=== PATIENT | male | born 1955 | race Caucasian/White ===

== ENCOUNTER 2019-04-07 17:48 | Emergency (ER) | payer MEDICARE, BC ==
[2019-04-07 18:08] VITALS: BP 96/59
--- NOTE | 2019-04-07 18:52 | EDM.PDOC ---
ED HPI GENERAL MEDICAL PROBLEM - General Chief Complaint: General Stated Complaint: NOT FEELING WELL Time Seen by Provider: 04/07/19 18:25 Source of Information: Reports: Patient, Family History Limitations: Reports: No Limitations - History of Present Illness INITIAL COMMENTS - FREE TEXT/NARRATIVE: 64-year-old male with several weeks of lightheaded feelings and dizziness when standing and with activity. Today he had a very small spot of blood in his stool so came in to be checked. He has no pain, no shortness of breath, no headache, no nausea or vomiting but he does "gag easy" when eating. He does have chronic diarrhea. Also chronic lower extremity edema which is "much better , and he has lost 20-30 pounds in the last month or two". He had a cardiology follow-up last month in which an echocardiogram was normal. His pacemaker is working well. Onset: Unknown/Unsure Duration: Week(s): (A few weeks of symptoms) Worsens with: Reports: Other (Standing and activity causes dizziness) Associated Symptoms: Denies: Confusion, Chest Pain, Cough, Diaphoresis, Fever/ Chills, Headaches, Shortness of Breath Lower Back Pain Score (Numeric/FACES): 8 - Related Data Allergies Allergy/AdvReac Type Severity Reaction Status Date / Time lisinopril Allergy Cough Verified 04/07/19 18:11 Home Meds: Home Meds Losartan/Hydrochlorothiazide [Losartan-HCTZ 100-25 MG] 1 each PO DAILY 11/16/13 [History] Citalopram Hydrobromide [Citalopram HBr] 20 mg PO DAILY 06/28/16 [History] Furosemide 40 mg PO DAILY 06/28/16 [History] levETIRAcetam [Keppra] 500 mg PO BID 06/28/16 [History] Metoprolol Tartrate 100 mg PO BID 02/08/18 [History] Past Medical History HEENT History: Reports: Impaired Vision Cardiovascular History: Reports: High Cholesterol, Hypertension, Pacemaker, Other (See Below) Other Cardiovascular History: sick sinus syndrome Musculoskeletal History: Reports: Back Pain, Chronic, Other (See Below) Other Musculoskeletal History: right knee pain Neurological History: Reports: Seizure Psychiatric History: Reports: Anxiety Endocrine/Metabolic History: Reports: Obesity/BMI 30+ - Past Surgical History Musculoskeletal Surgical History: Reports: Arthroscopic Knee Social & Family History - Tobacco Use Smoking Status *Q: Former Smoker Used Tobacco, but Quit: Yes Month/Year Tobacco Last Used: 20 years - Caffeine Use Caffeine Use: Reports: Coffee - Alcohol Use Days Per Week of Alcohol Use: 7 Number of Drinks Per Day: 1 Total Drinks Per Week: 7 - Recreational Drug Use Recreational Drug Use: No ED ROS GENERAL - Review of Systems Review Of Systems: See Below Constitutional: Denies: Fever, Chills HEENT: Reports: No Symptoms Respiratory: Denies: Shortness of Breath, Cough Cardiovascular: Reports: Palpitations (Occasional brief rapid palpitations which is controlled with his pacemaker). Denies: Chest Pain GI/Abdominal: Reports: Other ("gags easy" when eating). Denies: Abdominal Pain : Reports: No Symptoms Skin: Reports: No Symptoms Neurological: Reports: Dizziness Psychiatric: Reports: No Symptoms ED EXAM, GENERAL - Physical Exam Exam: See Below Exam Limited By: No Limitations General Appearance: Alert, No Apparent Distress, Other (Blood pressure on arrival was only 96/59, pulse 91. Orthostatics when standing his blood pressure dropped to 76/33) Eye Exam: Bilateral Eye: Normal Inspection Head: Atraumatic Respiratory/Chest: No Respiratory Distress, Lungs Clear Cardiovascular: Regular Rate, Rhythm GI/Abdominal: Soft, Non-Tender Extremities: Pedal Edema (Trace symmetric lower extremity edema below the knees) Neurological: Alert, Oriented, No Motor/Sensory Deficits Psychiatric: Normal Affect, Normal Mood Skin Exam: Dry Course - Vital Signs Last Recorded V/S: Last Vital Signs Temp 97 F 04/07/19 18:07 Pulse 91 04/07/19 18:07 Resp 20 04/07/19 18:07 BP 96/59 L 04/07/19 18:07 Pulse Ox 95 04/07/19 18:07 Orthostatic Blood Pressure [ 79/33 Standing] Orthostatic Blood Pressure [ 89/50 Sitting] Orthostatic Blood Pressure [ 90/51 Supine] - Orders/Labs/Meds Labs: Laboratory Tests 04/07/19 04/07/19 04/07/19 Range/Units 19:02 19:04 19:04 WBC 6.4 (4.5-11.0) K/uL RBC 3.44 L (4.30-5.90) M/uL Hgb 12.2 D (12.0-15.0) g/dL Hct 35.3 L (40.0-54.0) % MCV 103 H (80-98) fL MCH 36 H (27-31) pg MCHC 35 (32-36) % Plt Count 279 (150-400) K/uL Neut % (Auto) 52 (36-66) % Lymph % (Auto) 25 (24-44) % Bates % (Auto) 22 H (2-6) % Eos % (Auto) 1 L (2-4) % Baso % (Auto) 1 (0-1) % Sodium 133 L (140-148) mmol/L Potassium 2.7 L* (3.6-5.2) mmol/L Chloride 90 L (100-108) mmol/L Carbon Dioxide 27 (21-32) mmol/L Anion Gap 18.7 H (5.0-14.0) mmol/L BUN 36 H D (7-18) mg/dL Creatinine 2.0 H D (0.8-1.3) mg/dL Est Cr Clr Drug Dosing 36.33 mL/min Estimated GFR (MDRD) 34 L (>60) Glucose 112 H (74-106) mg/dL Calcium 8.8 (8.5-10.1) mg/dL Total Bilirubin 1.2 H (0.2-1.0) mg/dL AST 68 H D (15-37) U/L ALT 25 D (12-78) U/L Alkaline Phosphatase 110 (46-116) U/L Total Protein 7.1 (6.4-8.2) g/dL Albumin 3.5 (3.4-5.0) g/dL Globulin 3.6 H (2.3-3.5) g/dL Albumin/Globulin Ratio 1.0 L (1.2-2.2) Urine Color Yellow Urine Appearance Clear Urine pH 5.0 (4.5-8.0) Ur Specific Lacey 1.015 (1.008-1.030) Urine Protein Negative (NEGATIVE) mg/dL Urine Glucose (UA) Normal (NEGATIVE) mg/dL Urine Ketones Negative (NEGATIVE) mg/dL Urine Occult Blood Trace (NEGATIVE) Urine Nitrite Negative (NEGAITVE) Urine Bilirubin Negative (NEGATIVE) Urine Urobilinogen Normal (NORMAL) mg/dL Ur Leukocyte Esterase Negative (NEGATIVE) Urine RBC 0-5 (0-5) Urine WBC 0-5 (0-5) Ur Epithelial Cells Few Amorphous Sediment Not seen Urine Bacteria Many Urine Mucus Few Urine Other Meds: Medications Discontinued Medications Generic Name Dose Route Start Last Admin Trade Name Laya PRN Reason Stop Dose Admin Sodium Chloride 500 mls @ 1,000 mls/hr 04/07/19 19:00 04/07/19 19:03 Normal Saline IV 1,000 mls/hr ASDIRECTED DUYEN Administration Potassium Chloride 40 meq 04/07/19 19:39 04/07/19 19:48 Klor-Con M20 PO 04/07/19 19:40 40 meq ONETIME ONE Administration - Re-Assessments/Exams Free Text/Narrative Re-Assessment/Exam: 04/07/19 19:09 This patient presents as likely volume contracted. He was given 500 mL of normal saline bolus, CBC CMP and UA were obtained. 04/07/19 19:40 Hemoglobin returned 12.2, white count is normal. Potassium only 2.7, creatinine 2.0 and GFR 37. He was given another 500 mL bolus of fluid for a total of 1 L, and 40 mEq of oral potassium. Inpatient hospitalization for hydration and medication adjustments were recommended but the patient wanted to treat this at home which is reasonable considering he has an appointment in [address] Valladares , his primary provider was contacted for discussion. 04/07/19 19:[address] Valladares, his Lasix and losartan/hydrochlorothiazide will both be decreased by 50% daily. He is also given a prescription for potassium chloride to take 20 mEq daily. BNP will be obtained Monday prior to his visit, and he will return sooner if he feels she is worsening or develops other concerns. Departure - Departure Time of Disposition: 20:05 Disposition: Home, Self-Care 01 Clinical Impression: Orthostatic hypotension, Volume contraction from diuretics - Discharge Information Instructions: Orthostatic Hypotension Referrals: Brice Valladares MD [Primary Care Provider] - Forms: ED Department Discharge Care Plan Goals: Take one half of your normal dose of Lasix and losartan/hydrocholothiazide for the next 2 mornings, take potassium once daily as directed. Activity as tolerated, and recheck with Dr. Valladares on Monday as scheduled. Return sooner if you feel more symptomatic or develop other concerns.
[2019-04-07] MEDS ORDERED: Sodium Chloride 0.9% 500 ML IV SCH (19:00)
[2019-04-07] MEDS ORDERED: Potassium Chloride 20 MEQ Tab.ER PO ONE (19:39)
== END 2019-04-07 20:06 | disposition home or self-care (01) ==
LOC: JP.ED 17:48
DX: I95.1 Orthostatic hypotension (principal); I10 Essential (primary) hypertension; E78.00 Pure hypercholesterolemia, unspecified; F41.9 Anxiety disorder, unspecified; Z87.891 Personal history of nicotine dependence; Z79.899 Other long term (current) drug therapy; Z88.8 Allergy status to other drugs, medicaments and biological substances
CPT/HCPCS: 36415; 80053; 81001; 85025; 99284; A9270; J7030

== ENCOUNTER 2019-10-02 11:00 | Emergency (ER) | payer MEDICARE, BC ==
[2019-10-02 11:20] VITALS: BP 158/104; PULSE 85
--- NOTE | 2019-10-02 11:56 | EDM.PDOC ---
ED HPI GENERAL MEDICAL PROBLEM - General Chief Complaint: Respiratory Problem Stated Complaint: LIGHT HEADED DIZZY Time Seen by Provider: 10/02/19 11:30 Source of Information: Reports: Patient, Family History Limitations: Reports: No Limitations - History of Present Illness INITIAL COMMENTS - FREE TEXT/NARRATIVE: 64-year-old male arrives this morning after several hours of weakness, diaphoresis, pallor, and not feeling well. He has been having ongoing symptoms of early satiety and nausea with eating, intermittent dark stools, intermittent tremor, weakness, all have been evaluated and being worked up by his primary care. He is scheduled for an EGD next week. He has a pacemaker but has not had bypass or stents placed in the past. He thinks he has lost 25 pounds since this summer. An ASHLEY for back pain was done last week, he has not had much relief. Lower Back Pain Score (Numeric/FACES): 5 - Related Data Allergies Allergy/AdvReac Type Severity Reaction Status Date / Time lisinopril AdvReac Cough Verified 10/02/19 11:13 Home Meds: Home Meds Citalopram Hydrobromide [Citalopram HBr] 20 mg PO DAILY 06/28/16 [History] Furosemide 40 mg PO DAILY 06/28/16 [History] levETIRAcetam [Keppra] 500 mg PO BID 06/28/16 [History] Metoprolol Tartrate 100 mg PO BID 02/08/18 [History] Hydrochlorothiazide [Microzide] 12.5 mg PO DAILY 09/25/19 [History] Past Medical History HEENT History: Reports: Impaired Vision Cardiovascular History: Reports: High Cholesterol, Hypertension, Pacemaker, Other (See Below) Other Cardiovascular History: sick sinus syndrome Respiratory History: Reports: Other (See Below) Other Respiratory History: states does not sleep well Gastrointestinal History: Reports: None Musculoskeletal History: Reports: Back Pain, Chronic, Other (See Below) Other Musculoskeletal History: right knee pain Neurological History: Reports: Seizure Psychiatric History: Reports: Anxiety Endocrine/Metabolic History: Reports: Obesity/BMI 30+ Dermatologic History: Reports: Other (See Below) Other Dermatologic History: scabs patient picks at skin - Past Surgical History Head Surgeries/Procedures: Reports: None HEENT Surgical History: Reports: Tonsillectomy Cardiovascular Surgical History: Reports: None Respiratory Surgical History: Reports: None GI Surgical History: Reports: Colonoscopy, EGD Endocrine Surgical History: Reports: None Neurological Surgical History: Reports: None Musculoskeletal Surgical History: Reports: Arthroscopic Knee Dermatological Surgical History: Reports: None Social & Family History - Tobacco Use Smoking Status *Q: Former Smoker Used Tobacco, but Quit: Yes Month/Year Tobacco Last Used: 1989 Second Hand Smoke Exposure: No - Caffeine Use Caffeine Use: Reports: Coffee, Soda - Alcohol Use Days Per Week of Alcohol Use: 7 Number of Drinks Per Day: 2 Total Drinks Per Week: 14 - Recreational Drug Use Recreational Drug Use: No ED ROS GENERAL - Review of Systems Review Of Systems: See Below Constitutional: Reports: Malaise, Decreased Appetite, Weight Loss. Denies: Fever, Chills HEENT: Reports: No Symptoms Respiratory: Reports: Shortness of Breath (Was feeling short of breath this morning, that has improved) Cardiovascular: Denies: Chest Pain, Palpitations GI/Abdominal: Reports: Decreased Appetite, Nausea. Denies: Abdominal Pain, Vomiting : Reports: No Symptoms Skin: Denies: Jaundice Neurological: Reports: Other (Weakness, difficulty walking, near syncopal episodes). Denies: Headache ED EXAM, GENERAL - Physical Exam Exam: See Below Exam Limited By: No Limitations General Appearance: Alert, No Apparent Distress Eye Exam: Bilateral Eye: Normal Inspection Head: Atraumatic Neck: Supple Respiratory/Chest: No Respiratory Distress, Lungs Clear Cardiovascular: Regular Rate, Rhythm GI/Abdominal: Soft, Other (Fairly obese, some mild discomfort to palpation across the upper abdomen but no focal pain or guarding) Extremities: Other (1+ symmetric pitting edema) Neurological: Alert, Oriented, No Motor/Sensory Deficits Skin Exam: Warm, Diaphoretic (Still some diaphoresis from his episode) Course - Vital Signs Last Recorded V/S: Last Vital Signs Temp 95.6 F 10/02/19 11:21 Pulse 85 10/02/19 11:21 Resp 19 10/02/19 11:21 BP 158/104 H 10/02/19 11:21 Pulse Ox 99 10/02/19 11:21 - Orders/Labs/Meds Labs: Laboratory Tests 10/02/19 10/02/19 Range/Units 11:53 11:53 WBC 6.8 (4.5-11.0) K/uL RBC 3.39 L (4.30-5.90) M/uL Hgb 10.6 L (12.0-15.0) g/dL Hct 32.7 L (40.0-54.0) % MCV 97 (80-98) fL MCH 31 (27-31) pg MCHC 32 (32-36) % Plt Count 188 (150-400) K/uL Neut % (Auto) 82 H (36-66) % Lymph % (Auto) 6 L (24-44) % Day % (Auto) 12 H (2-6) % Eos % (Auto) 0 L (2-4) % Baso % (Auto) 0 (0-1) % Sodium 132 L (140-148) mmol/L Potassium 4.2 (3.6-5.2) mmol/L Chloride 90 L (100-108) mmol/L Carbon Dioxide 23 (21-32) mmol/L Anion Gap 23.2 H (5.0-14.0) mmol/L BUN 10 D (7-18) mg/dL Creatinine 0.9 D (0.8-1.3) mg/dL Est Cr Clr Drug Dosing 80.74 mL/min Estimated GFR (MDRD) > 60 (>60) Glucose 119 H (74-106) mg/dL Calcium 9.8 (8.5-10.1) mg/dL Total Bilirubin 2.4 H D (0.2-1.0) mg/dL AST 122 H D (15-37) U/L ALT 35 (12-78) U/L Alkaline Phosphatase 158 H (46-116) U/L Troponin I < 0.017 (0.000-0.056) ng/mL Total Protein 6.8 (6.4-8.2) g/dL Albumin 3.5 (3.4-5.0) g/dL Globulin 3.3 (2.3-3.5) g/dL Albumin/Globulin Ratio 1.1 L (1.2-2.2) TSH, Ultra Sensitive 3.954 H (0.358-3.740) uIU/mL Meds: Medications Discontinued Medications Generic Name Dose Route Start Last Admin Trade Name Freq PRN Reason Stop Dose Admin Sodium Chloride 89 mls @ 3.5 mls/sec 10/02/19 13:15 10/02/19 13:40 Normal Saline IV 3.5 mls/sec ASDIRECTED DUYEN Administration Iopamidol 150 ml 10/02/19 13:02 10/02/19 13:40 Isovue-300 (61%) IV 10/03/19 13:03 150 ml . DIRECTED PRN Administration RADIOLOGY EXAM Sodium Chloride 10 ml 10/02/19 13:15 10/02/19 13:40 Saline Flush FLUSH 10 ml ONETIME DUYEN Administration - Re-Assessments/Exams Free Text/Narrative Re-Assessment/Exam: 10/02/19 12:52 Patient was placed on cardiac monitoring and showed normal sinus rhythm, it does not appear that his pacemaker is firing at this time. Blood pressure temperature and O2 saturations are all normal. CBC, CMP and TSH were obtained. 10/02/19 12:58 Hemoglobin is 10.6 which is down from 12.2 earlier this year. Alk phos, AST, bilirubin are all rising progressively. TSH is normal. An abdomen pelvis CT with IV contrast was obtained. 10/02/19 14:46 IMPRESSION: Mild stranding and edema adjacent to the proximal duodenum with mild wall prominence, as well as asymmetrical wall thickening at the gastric antrum. Correlate for PUD or nonspecific duodenitis and recommend follow-up endoscopic evaluation. Hepatomegaly and hepatic steatosis. An acute or recent compression fracture of the L2 vertebral body. A fat containing left inguinal hernia. Patchy ground-glass pulmonary opacities at the lung bases could represent nonspecific pneumonitis and/or scarring. Correlate clinically. Old granulomatous disease. Above findings were discussed with the patient. He was encouraged to keep his scheduled EGD, and will start at least 20 mg of omeprazole daily. Return if he develops any pain, fever or persistent nausea or vomiting, Departure - Departure Time of Disposition: 14:53 Disposition: Home, Self-Care 01 Clinical Impression: Vasovagal episode, Peptic ulcer disease - Discharge Information Instructions: Near-Syncope, [id number] Referrals: Brice Valladares MD [Primary Care Provider] - Forms: ED Department Discharge Care Plan Goals: Increase activity as tolerated, try omeprazole 20 mg daily and keep your appointment with your endoscopy as scheduled. Return anytime if worsening such as fever, pain, or persistent nausea and vomiting.
[2019-10-02] MEDS: Iopamidol 612 MG/ML 150 ML Bottle IV PRN (13:40)
[2019-10-02] MEDS: Sodium Chloride 0.9% 10 ML Syringe FLUSH SCH (13:40)
--- NOTE | 2019-10-02 14:41 | CRLCT ---
INDICATION: Rising LFTs. Early satiety TECHNIQUE: CT abdomen and pelvis acquired with IV contrast. 150 mL of Isovue-300 administered. COMPARISON: None available FINDINGS: Lower chest: Several patchy foci of ground-glass opacity in the lower lobes suggestive of scarring and/or nonspecific pneumonitis. A right middle lobe calcified granuloma with small adjacent clustered nodules, statistically postinflammatory. A cardiac pacer lead. Liver: Hepatomegaly measuring 23.9 cm craniocaudally. Hepatic steatosis. Spleen: Multiple calcified splenic granulomas. A sub centimeter inferior splenic low-density lesion on image 52, too small to characterize. Pancreas: Few punctate pancreatic calcifications compatible with mild chronic calcific pancreatitis. Gallbladder and bile ducts: Possible gallbladder sludge Adrenal glands: Unremarkable. Kidneys: Unremarkable. GI tract: Focal asymmetrical wall thickening in the inferomedial aspect of the gastric antrum on image 58. Mild stranding adjacent to the proximal duodenum with mild asymmetrical wall prominence. An anterior proximal duodenal diverticulum seen on image 66. No mechanical bowel obstruction. A normal appendix. A 1.5 cm ovoid fat attenuation focus within the cecum which could represent an ileocecal lipoma. No significant pericolonic changes. At least 1 sigmoid diverticulum seen. Intramural fat attenuation in right lower abdominal small bowel segments and the right colon can be seen as sequela of chronic inflammation. Vascular structures: Atherosclerotic changes. Lymph nodes: An irregular ovoid calcification in the left abdominal mesentery on image 96 which could represent a calcified lymph node. Otherwise no abnormally enlarged lymph nodes. Miscellaneous: No significant free fluid or free air. A fat containing left inguinal hernia. Pelvic Organs: Slight stranding along the left anterior bladder wall may be related to slight inflammation or mild vascular congestion in the regional fat, related to the left inguinal hernia. Unremarkable prostate. Bones: Compression deformities of the L1 and L2 vertebral bodies, with lucencies underlying the L2 inferior endplate, suggestive of a recent injury, and a tiny retropulsed fragment. Mild central compression deformity along the L3 superior endplate. IMPRESSION: Mild stranding and edema adjacent to the proximal duodenum with mild wall prominence, as well as asymmetrical wall thickening at the gastric antrum. Correlate for PUD or nonspecific duodenitis and recommend follow-up endoscopic evaluation. Hepatomegaly and hepatic steatosis. An acute or recent compression fracture of the L2 vertebral body. A fat containing left inguinal hernia. Patchy ground-glass pulmonary opacities at the lung bases could represent nonspecific pneumonitis and/or scarring. Correlate clinically. Old granulomatous disease. Dictated by Ede Mesa MD @ 10/02/2019 2:38:49 PM Please note that all CT scans at this facility use dose modulation, iterative reconstruction, and/or weight-based dosing when appropriate to reduce radiation dose to as low as reasonably achievable. Dictated by: Ede Mesa MD @ 10/02/2019 14:38:59 (Electronically Signed)
== END 2019-10-02 14:53 | disposition home or self-care (01) ==
LOC: JP.ED 11:00
DX: R55 Syncope and collapse (principal); K27.9 Peptic ulcer, site unspecified, unspecified as acute or chronic, without hemorrhage or perforation; I10 Essential (primary) hypertension; E66.9 Obesity, unspecified; Z79.899 Other long term (current) drug therapy; Z88.8 Allergy status to other drugs, medicaments and biological substances; Z87.891 Personal history of nicotine dependence
CPT/HCPCS: 36415; 74177; 80053; 84443; 84484; 85025; 99285; J7030

== ENCOUNTER 2019-10-16 07:05 | Day surgery (SDC) | payer MEDICARE, BC ==
[2019-10-16] MEDS ORDERED: Lactated Ringers 1,000 ML IV SCH (07:30)
[2019-10-16] MEDS ORDERED: Midazolam 1 MG/ML 2 ML SDV ONE (08:01)
[2019-10-16] MEDS ORDERED: Propofol 200 MG/20 ML SDV ONE ×2 (08:01→09:10)
[2019-10-16] MEDS ORDERED: fentaNYL 100 MCG/2 ML SDV ONE (08:01)
[2019-10-16 10:14] VITALS: BP 148/64; PULSE 100
--- NOTE | 2019-10-16 10:34 | OR ---
DATE OF PROCEDURE: 10/16/2019 SURGEON: Wilman Bocanegra MD PREOPERATIVE DIAGNOSIS: Dysphagia. POSTOPERATIVE DIAGNOSES: Dysphagia, hiatal hernia, pre-pyloric ulcers, gastroesophageal reflux disease. PROCEDURE PERFORMED: Esophagogastroduodenoscopy with antral biopsies for CLOtest and for pathology to look for Helicobacter pylori, biopsy of gastroesophageal junction. ANESTHESIA: IV anesthesia with monitored anesthesia care. INDICATION: This 64-year-old white male is referred for upper endoscopy because of intermittent dysphagia. He is scheduled to have a swallowing study next week. I counseled him for upper endoscopy with possible biopsy including risks and alternatives, and he gave his informed consent to proceed. DESCRIPTION OF PROCEDURE: The patient was placed in the left lateral decubitus position. IV anesthesia was administered by the Anesthesia Service. Time-out was held. A flexible video Olympus upper endoscope was passed through his mouth, down the esophagus, and into his stomach. The scope was easily passed through the pylorus into the duodenum, reaching its third portion. The scope was then slowly withdrawn examining the mucosa throughout. The duodenal mucosa appeared unremarkable. The scope was brought back through the pylorus into the duodenum. Here, we saw a quite prominent ulcer and a few other small ones. Antral biopsies were obtained for CLOtest and for pathology to look for Helicobacter pylori. The scope was retroflexed. The proximal stomach appeared unremarkable except for a hiatal hernia which was visualized. The scope was straightened and brought up through the hiatal hernia to the GE junction. There was evidence of some chronic inflammation here. We obtained multiple, totalling at least 6 biopsies of the gastroesophageal junction. The scope was then brought proximal through the remainder of the esophagus, which otherwise appeared unremarkable and was removed. There were no esophageal obstructing lesions. He tolerated the procedure well. Wilman Bocanegra MD /[id number]
== END 2019-10-16 10:20 | disposition home or self-care (01) ==
LOC: JP.SDS 07:05
PROVIDERS: ATTEND Surgery
DX: K21.0 Gastro-esophageal reflux disease with esophagitis (principal); K44.9 Diaphragmatic hernia without obstruction or gangrene; K25.9 Gastric ulcer, unspecified as acute or chronic, without hemorrhage or perforation; I10 Essential (primary) hypertension; Z88.8 Allergy status to other drugs, medicaments and biological substances
CPT/HCPCS: 43239; 87081; J2250; J2704; J3010

== ENCOUNTER 2021-01-06 15:23 | Emergency (ER) | payer MEDICARE, BC ==
[2021-01-06 15:39] VITALS: BP 113/58; PULSE 81
--- NOTE | 2021-01-06 15:42 | EDM.PDOC ---
ED HPI GENERAL MEDICAL PROBLEM - General Chief Complaint: General Stated Complaint: FELL Time Seen by Provider: 01/06/21 15:39 Source of Information: Reports: Patient History Limitations: Reports: No Limitations - History of Present Illness INITIAL COMMENTS - FREE TEXT/NARRATIVE: pt was left by his sitting in his recliner and when she got home he was sitting in front of the recliner unable to get up. He did not remember any of the events of the day. Onset: Sudden Duration: Hour(s): Location: Reports: Head, Generalized, Other ( weakness in both legs. ) Associated Symptoms: Reports: Weakness, Other ( pt can not remember the events of the day. ) - Related Data Allergies Allergy/AdvReac Type Severity Reaction Status Date / Time lisinopril AdvReac Cough Verified 01/06/21 15:39 Home Meds: Home Meds Citalopram Hydrobromide [Citalopram HBr] 20 mg PO DAILY 06/28/16 [History] levETIRAcetam [Keppra] 500 mg PO BID 06/28/16 [History] Metoprolol Tartrate 100 mg PO BID 02/08/18 [History] Potassium Chloride 20 meq PO DAILY 10/14/19 [History] Topiramate [Topiramate ER] 25 mg PO DAILY 08/04/20 [History] Losartan/Hydrochlorothiazide [Losartan-HCTZ 100-25 MG] 1 tab PO DAILY 01/06/21 [History] Past Medical History HEENT History: Reports: Impaired Vision Cardiovascular History: Reports: Hypertension, Pacemaker Other Cardiovascular History: sick sinus syndrome Musculoskeletal History: Reports: Back Pain, Chronic, Other (See Below) Other Musculoskeletal History: right knee pain Neurological History: Reports: Seizure Psychiatric History: Reports: Anxiety, Depression Endocrine/Metabolic History: Reports: Obesity/BMI 30+ - Infectious Disease History Infectious Disease History: Reports: Chicken Pox, Measles, Mumps - Past Surgical History HEENT Surgical History: Reports: Adenoidectomy, Tonsillectomy Cardiovascular Surgical History: Reports: Pacer GI Surgical History: Reports: Colonoscopy, EGD Neurological Surgical History: Reports: None Musculoskeletal Surgical History: Reports: Arthroscopic Knee Dermatological Surgical History: Reports: None Social & Family History - Family History Family Medical History: No Pertinent Family History - Caffeine Use Caffeine Use: Reports: Coffee ED ROS GENERAL - Review of Systems Review Of Systems: See Below Constitutional: Reports: Weakness HEENT: Reports: No Symptoms Respiratory: Reports: No Symptoms Cardiovascular: Reports: No Symptoms Endocrine: Reports: No Symptoms GI/Abdominal: Reports: No Symptoms : Reports: No Symptoms Musculoskeletal: Reports: Other ( muscle weakness in his lower extremities. ) ED EXAM, GENERAL - Physical Exam Exam: See Below Free Text/Narrative:: pt was in his recliner when she left for town. When she got back 1 hour later he was sitting in front of the chair unable to get up. He was alert and did not look particularly postictal. He has not had a seizure for 6 years. Exam Limited By: No Limitations General Appearance: Alert, No Apparent Distress, Other (pt is very concerned because his legs are so weak, ) Ears: Normal TMs Nose: Normal Inspection Throat/Mouth: Normal Inspection Head: Atraumatic Neck: Normal Inspection Respiratory/Chest: No Respiratory Distress Cardiovascular: Regular Rate, Rhythm GI/Abdominal: Soft, Non-Tender (Male) Exam: Deferred Back Exam: Normal Inspection Neurological: Alert, Oriented, Normal Cognition, Other (pt has no recall of the events of the day. ) Psychiatric: Anxious Course - Vital Signs Last Recorded V/S: Last Vital Signs Temp 36.7 C 01/06/21 15:36 Pulse 81 01/06/21 15:36 Resp 16 01/06/21 15:36 BP 113/58 L 01/06/21 15:36 Pulse Ox 93 L 01/06/21 15:36 Orthostatic Blood Pressure [ 143/97 Standing] Orthostatic Blood Pressure [ 142/106 Sitting] Orthostatic Blood Pressure [ 132/75 Supine] - Orders/Labs/Meds Orders: Active Orders 24 hr Category Date Time Status Orthostatic Vital Signs [RC] ASDIRECTED Care 01/06/21 16:36 Active Chest 1V Frontal [CR] Stat Exams 01/06/21 15:42 Taken LEVETIRACETAM (KEPPRA), S Stat Lab 01/06/21 16:38 Ordered Labs: Laboratory Tests 01/06/21 01/06/21 01/06/21 Range/Units 15:38 15:51 15:51 WBC 13.5 H (4.5-11.0) K/uL RBC 3.67 L (4.30-5.90) M/uL Hgb 12.3 (12.0-15.0) g/dL Hct 36.4 L (40.0-54.0) % MCV 99 H (80-98) fL MCH 34 H (27-31) pg MCHC 34 (32-36) % Plt Count 171 (150-400) K/uL Neut % (Auto) 93 H (36-66) % Lymph % (Auto) 2 L (24-44) % Burnett % (Auto) 5 (2-6) % Eos % (Auto) 0 L (2-4) % Baso % (Auto) 0 (0-1) % Sodium 136 L (140-148) mmol/L Potassium 3.9 (3.6-5.2) mmol/L Chloride 96 L (100-108) mmol/L Carbon Dioxide 23 (21-32) mmol/L Anion Gap 20.9 H (5.0-14.0) mmol/L BUN 16 D (7-18) mg/dL Creatinine 0.8 (0.8-1.3) mg/dL Est Cr Clr Drug Dosing 89.60 mL/min Estimated GFR (MDRD) > 60 (>60) Glucose 96 (74-106) mg/dL Calcium 8.6 (8.5-10.1) mg/dL Total Bilirubin 0.7 D (0.2-1.0) mg/dL AST 76 H (15-37) U/L ALT 23 (12-78) U/L Alkaline Phosphatase 104 (46-116) U/L Total Protein 6.9 (6.4-8.2) g/dL Albumin 3.2 L (3.4-5.0) g/dL Globulin 3.7 H (2.3-3.5) g/dL Albumin/Globulin Ratio 0.9 L (1.2-2.2) Urine Color Yellow (YELLOW) Urine Appearance Slightly cloudy A (CLEAR) Urine pH 5.5 (5.0-8.0) Ur Specific [place] 1.020 (1.008-1.030) Urine Protein Negative (NEGATIVE) mg/dL Urine Glucose (UA) Negative (NEGATIVE) mg/dL Urine Ketones 15 H (NEGATIVE) mg/dL Urine Occult Blood Negative (NEGATIVE) Urine Nitrite Negative (NEGATIVE) Urine Bilirubin Negative (NEGATIVE) Urine Urobilinogen 0.2 (0.2-1.0) EU/dL Ur Leukocyte Esterase Negative (NEGATIVE) Urine RBC Not seen (0-5) Urine WBC Not seen (0-5) Ur Epithelial Cells Rare Amorphous Sediment Not seen Urine Bacteria Not seen Urine Mucus Moderate Urine Other - Re-Assessments/Exams Free Text/Narrative Re-Assessment/Exam: 01/06/21 17:47 pt had a cat scan of the head which did not show acute findings. He is not able to have a MRI because of his pacemaker. He states that he remembers from about 5 thirty am and really does not have good recall until his found him in front of the chair. He has a past history of low bp. He did take his meds today. A keppara level was drawn today. He has a neurology appt next week. His lab work looks good. His bp was low when he arrived at [facility]. He was ambulated in the er with a walker and did well. Addi was able to get up from a chair when he was using a walker. Departure - Departure Time of Disposition: 17:51 Disposition: Home, Self-Care 01 Condition: Fair Clinical Impression: Leg weakness, bilateral, Seizure disorder, Hypotension - Discharge Information Referrals: Vishnu Olivier MD [Primary Care Provider] - Forms: ED Department Discharge Care Plan Goals: keppara level is pending. He should take this level with him for his neurology visit. Pt will cut his losartan with hctz in half and use 1/2 tab daily instead of a whole one, He should discuss this episode where he does not recall the events of the day with his neurologist. If further episodes occur rtc. appt with Dr Huang to recheck his bp in 4-5 days. Sepsis Event Note (ED) - Focused Exam Vital Signs: Vital Signs Temp Pulse Resp BP Pulse Ox 01/06/21 15:36 36.7 C 81 16 113/58 L 93 L - My Orders Last 24 Hours: My Active Orders 01/06/21 15:42 Chest 1V Frontal [CR] Stat 01/06/21 16:36 Orthostatic Vital Signs [RC] ASDIRECTED 01/06/21 16:38 LEVETIRACETAM (KEPPRA), S Stat - Assessment/Plan Last 24 Hours: My Active Orders 01/06/21 15:42 Chest 1V Frontal [CR] Stat 01/06/21 16:36 Orthostatic Vital Signs [RC] ASDIRECTED 01/06/21 16:38 LEVETIRACETAM (AILYNRA), S Stat
--- NOTE | 2021-01-06 17:06 | CRLCT ---
INDICATION: Altered mental status. TECHNIQUE: CT of the head without contrast. Coronal and sagittal reformats are included. COMPARISON: Head CT from 11/06/2014. FINDINGS: No acute intracranial hemorrhage or extra-axial collection. No evidence of acute cortical infarction. No mass effect or midline shift. Moderate generalized cerebral/cerebellar parenchymal volume loss. Ventricles normal in size and contour given the degree of volume loss. Patchy regions of decreased attenuation within the periventricular, intermediate deep and subcortical white matter of both cerebral hemispheres most likely reflects chronic microvascular ischemic disease and age related changes in this patient. Vascular calcifications within the carotid. Orbital contents are normal. Paranasal sinuses are well aerated. Mastoid air cells are clear. No lytic or sclerotic osseous lesions within the calvarium or skull base. Scalp and other imaged soft tissue structures are normal. IMPRESSION: 1. No acute intracranial pathology. 2. Chronic findings as above, mildly progressed since 2014. Please note that all CT scans at this facility use dose modulation, iterative reconstruction, and/or weight-based dosing when appropriate to reduce radiation dose to as low as reasonably achievable. Dictated by Avtar Yuen MD @ Jan 06 2021 5:02PM Signed by Dr. Avtar Yuen @ Jan 06 2021 5:05PM
--- NOTE | 2021-01-07 09:07 | CR ---
CHEST: Portable 01/06/2021 at 1604 CLINICAL HISTORY:Memory loss COMPARISON:2011 FINDINGS: Heart is mildly enlarged. There are atherosclerotic changes in the aorta.. Patient has a permanent cardiac pacer. Lung markings are exaggerated by patient body habitus. No infiltrates are seen. IMPRESSION: Cardiomegaly Permanent cardiac pacer No acute cardiopulmonary process
== END 2021-01-06 18:46 | disposition home or self-care (01) ==
LOC: JP.ED 15:23
DX: M62.81 Muscle weakness (generalized) (principal); G40.909 Epilepsy, unspecified, not intractable, without status epilepticus; I95.9 Hypotension, unspecified; I10 Essential (primary) hypertension; E66.9 Obesity, unspecified; Z68.42 Body mass index [BMI] 45.0-49.9, adult; Z88.8 Allergy status to other drugs, medicaments and biological substances; Z79.899 Other long term (current) drug therapy
CPT/HCPCS: 36415; 70450; 71045; 71045-26; 80053; 80177; 81001; 85025; 99284; 99285-25